=== PATIENT | female | born 1970 | race Asian ===

== ENCOUNTER 2018-06-22 13:10 | Emergency (ER) | payer OTHER ==
[~2018-06-22] VITALS: Ht 162.6 cm; Wt 59.1 kg
[2018-06-22 13:11] VITALS: Ht 162.6 cm; Wt 59.1 kg
[2018-06-22 14:11] LABS: UA SPECIFIC GRAVITY <=1.005 (1.005-1.035); microscopic required? YES; urine erythrocyte 3+ (NEGATIVE)
[2018-06-22 14:16] LABS: BASOPHIL % 0.1 % (0-2); PLATELET COUNT 253 x10^3mcL (130-400); RED CELL DISTRIBUTION WIDTH 14.4 % (11.5-14.5)
[2018-06-22 14:21] LABS: CALCIUM 8.8 mg/dL (8.5-10.1); CARBON DIOXIDE 28.1 mmol/L (21-32); CHLORIDE SERUM 104 mmol/L (98-107); CREATININE SERUM 0.7 mg/dL (0.6-1.0); GFR1 > 60 mL/min; GLUCOSE SERUM 109 mg/dL (74-106); POTASSIUM SERUM 4.1 mmol/L (3.5-5.1); SODIUM SERUM 142 mmol/L (136-145)
[2018-06-22 14:26] LABS: ALKALINE PHOSPHATASE 147 U/L (46-116); ALT/SGPT 71 U/L (14-59); AST/SGOT 57 U/L (15-37); BILIRUBIN TOTAL 0.4 mg/dL (0.20-1.00); TOTAL PROTEIN, SERUM 6.9 g/dL (6.4-8.2)
[2018-06-22 14:29] LABS: ALBUMIN 2.7 g/dL (3.4-5.0)
[2018-06-22 14:38] LABS: target cell (codocyte) 1+
[2018-06-22 14:39] LABS: rbc morphology (normal/abnorm) ABNORMAL (NORMAL)
[2018-06-22 16:28] VITALS: BP 146/90
== END 2018-06-22 16:28 | disposition home or self-care (01) ==
LOC: ED 13:10
PROVIDERS: Emergency Medicine
DX: O14.95 Unspecified pre-eclampsia, complicating the puerperium (principal); Z86.2 Personal history of diseases of the blood and blood-forming organs and certain disorders involving the immune mechanism; Z98.890 Other specified postprocedural states
CPT/HCPCS: J0360; J3475